=== PATIENT | male | born 1975 | race Caucasian/White ===

== ENCOUNTER 2020-08-07 20:13 | Inpatient (IN) ==
[2020-08-07] MEDS ORDERED: XOPENEX 1.25 MG/3 ML NEBULE NEB ONE ×2 (21:44→21:59)
[2020-08-07] MEDS ORDERED: SOLU-Medrol 125 MG VIAL IVP ONE (21:45)
--- NOTE | 2020-08-07 21:54 | DR.SOBA ---
HPI Time Seen Time Seen by Provider: 08/07/20 21:30 Primary Care Physician Primary Care Physician: NFD Complaints Chief Complaint Doctors Comments: covid sympttoms x 1 week but worsened today Chief Complaint:: PT AMBULATORY IN ED WITH C/O BEING EXPOSED TO COVID AND NOW OXYGEN LEVEL LOW. RAPID COVID SWAB DONE TODAY WHICH WAS POSITIVE. COVID-19 Coronavirus risk:travel/contact w/high risk person: Yes Has patient experienced Coronavirus symptoms: Yes Coronavirus symptoms experienced: Coughing and Shortness of Breath Source History Provided: Patient Mode of Arrival Mode of Arrival: Ambulatory Timing Onset of Chief Complaint: 08/04/20 Context Onset:: At Rest PE Risk Factors:: None History of:: None Prehospital Care:: None Modifying Factors Worsens:: Exertion Improves:: Nothing Associated Signs and Symptoms Associated Signs and Symptoms: Cough and Nasal Congestion If Cough Cough: Productive and White PMH PMH Past Medical History: No Past Surgical History: No Surgical History: No History Family History History of Family Medical Conditions: Yes Family Medical History: Diabetes Mellitus, Cancer, [place], Coronary Artery Disease and Hypertension Social History Does patient currently use any type of tobacco product: No Have you used tobacco products in the last 12 months: No Type of Tobacco Use: None Does any household member use tobacco: No Alcohol Use: None Do you use any recreational Drugs:: No Lives With: Alone Lives Where: Home Travel Risk Coronavirus risk:travel/contact w/high risk person: Yes Has patient experienced Coronavirus symptoms: Yes Coronavirus symptoms experienced: Coughing and Shortness of Breath Infectious screening In the last 2 months have you had wt loss of >10#?: NO Have you had fever, night sweats or hemotysis?: No Have you traveled outside the country in the last 6 months?: No Isolation: Droplet ROS Review of Systems Constitutional: No Symptoms Reported Eyes: No Symptoms Reported ENTM: No Symptoms Reported and Nose Discharge Respiratoy: Productive Cough and Short of Breath Cardiovascular: No Symptoms Reported Gastrointestinal/Abdominal: No Symptoms Reported Genitourinary: No Symptoms Reported Neurological: No Symptoms Reported Musculoskeletal: Muscle Pain Integumentary: No Symptoms Reported Hematologic/Lymphatic: No Symptoms Reported Endocrine: No Symptoms Reported Psychiatric: No Symptoms Reported All Other Systems: Reviewed and Negative PE Vital Signs Vitals: Temperature 98.9 F Pulse Rate 84 Respiratory Rate 22 Blood Pressure 139/84 O2 Sat by Pulse Oximetry 91 General Limitations: No Limitations General Appearance: Alert and In No Apparent Distress Head Head Exam: Normal Inspection, Atraumatic and Normocephalic Eyes Eye exam: Normal Appearance and EOMI ENT ENT Exam: Normal Exam and Normal Oropharynx Neck Neck Exam: Normal Inspection, Full ROM and Trachea Midline Chest Chest Inspection: Normal Inspection Respiratory Respiratory Exam: Normal Lung Sounds Bilat and Accessory Muscle Use Respiratory Exam: Bilateral: Clear to Auscultation Cardiovascular Cardiovascular Exam: Regular Rate Abdominal Exam Abdominal Exam: Normal Inspection Extremities Extremities Exam: Normal Inspection and Full ROM Back Back Exam: Normal Inspection and Full ROM Neurologic Neurological Exam: Alert, Oriented X3 and CN II-XII Intact Psychiatric Psychiatric Exam: Anxious Skin Skin Exam: Normal Color ROR Labs Reviewed Result Diagrams: 08/07/20 22:06 08/07/20 22:00 Laboratory: WBC 4.9 X10^3/uL (3.6-10.0) 08/07/20 22:06 RBC 5.33 X10^6/uL (4.7-6.0) 08/07/20 22:06 Hgb 14.3 g/dL (13.5-18.0) 08/07/20 22:06 Hct 42.7 % (42.0-54.0) 08/07/20 22:06 MCV 80.2 fL (80.0-100.0) 08/07/20 22:06 MCH 26.8 pg (27.0-34.0) L 08/07/20 22:06 MCHC 33.4 g/dL (33.0-35.0) 08/07/20 22:06 RDW 15.4 % (11.6-16.5) 08/07/20 22:06 Plt Count 277 X10^3/uL (150.0-450.0) 08/07/20 22:06 MPV 7.9 fL (7.4-11.0) 08/07/20 22:06 Neut % (Auto) 72.0 % (42.0-75.0) 08/07/20 22:06 Lymph % (Auto) 21.1 % (21.0-51.0) 08/07/20 22:06 Porter % (Auto) 5.3 % (0.0-13.0) 08/07/20 22:06 Eos % (Auto) 1.1 % (0.9-2.9) 08/07/20 22:06 Baso % (Auto) 0.5 % (0.2-1.0) 08/07/20 22:06 Neut # (Auto) 3.5 x10^3/uL (2.2-4.8) 08/07/20 22:06 Lymph # (Auto) 1.0 X10^3/uL (1.3-2.9) L 08/07/20 22:06 Porter # (Auto) 0.3 x10^3/uL (0.3-0.8) 08/07/20 22:06 Eos # (Auto) 0.1 x10^3/uL (0.0-0.2) 08/07/20 22:06 Baso # (Auto) 0.0 X10^3/uL (0.0-0.1) 08/07/20 22:06 Absolute Nucleated RBC 0.1 /100WBC 08/07/20 22:06 Sample Site Lrad 08/07/20 22:13 ABG pH 7.490 (7.35-7.45) H 08/07/20 22:13 ABG pCO2 35.0 mmHg (35.0-45.0) 08/07/20 22:13 ABG pO2 56.0 mmHg (80.0-100.0) L 08/07/20 22:13 ABG HCO3 26.7 mmol/L (22-26) H 08/07/20 22:13 ABG O2 Saturation 91.0 % (90-100) 08/07/20 22:13 ABG Base Excess 3.5 mmol/L (-2.0-2.0) H 08/07/20 22:13 Boyd Test Pos 08/07/20 22:13 A-a Gradient 50.0 mmHg 08/07/20 22:13 FiO2 21.0 08/07/20 22:13 Blood Gas Comments Keisha abg well-mtf 08/07/20 22:13 Sodium 140 mmol/L (136-145) 08/07/20 22:00 Corrected Sodium TNP 08/07/20 22:00 Potassium 4.0 mmol/L (3.5-5.1) 08/07/20 22:00 Chloride 101 mmol/L (98-107) 08/07/20 22:00 Carbon Dioxide 28.6 mmol/L (21-32) 08/07/20 22:00 BUN 12 mg/dL (7-18) 08/07/20 22:00 Creatinine 1.28 mg/dL (0.70-1.30) 08/07/20 22:00 Est GFR (MDRD) Af Amer > 60 (>60) 08/07/20 22:00 Est GFR (MDRD) Non-Af > 60 (>60) 08/07/20 22:00 Glucose 99 mg/dL (65-99) 08/07/20 22:00 Calcium 8.6 mg/dL (8.5-10.1) 08/07/20 22:00 Corrected Calcium 9.2 mg/dL (8.5-10.1) 08/07/20 22:00 Ferritin 348 ng/mL (26-388) 08/07/20 22:00 Total Bilirubin 0.30 mg/dL (0.2-1.0) 08/07/20 22:00 AST 65 Units/L (15-37) H 08/07/20 22:00 ALT 47 Units/L (12-78) 08/07/20 22:00 Alkaline Phosphatase 84 Units/L (46-116) 08/07/20 22:00 Creatine Kinase 523 Units/L (39-308) H 08/07/20 22:00 CK-MB (CK-2) 1.3 ng/mL (0-4.0) 08/07/20 22:00 CK/CKMB % Calc 0.3 % (<4) 08/07/20 22:00 Troponin I 0.04 ng/mL (0-1.5) 08/07/20 22:00 C-Reactive Protein 112.80 mg/L (0-3.0) H 08/07/20 22:00 B-Natriuretic Peptide 13.2 pg/mL (0-79) 08/07/20 22:00 Total Protein 7.4 g/dL (6.4-8.2) 08/07/20 22:00 Albumin 3.2 g/dL (3.4-5.0) L 08/07/20 22:00 Globulin 4.2 g/dL (2.5-4.5) 08/07/20 22:00 Albumin/Globulin Ratio 0.8 Ratio (1.1-2.1) L 08/07/20 22:00 XRAY XRAY Interpreted by: Radiologist X-ray Results: chest: multifocal alveolar disease Opioid Opioid Risk Tool Age (Lucien box if 16-45): Yes History of Preadolescent Sexual Abuse: No Total: 1 Total Score Risk Category: Low Risk Copyright: Cuong BAILON predicting aberrant behaviors Diagnosis Discharge Problem: Pneumonia due to 2019 novel coronavirus Instructions Forms: Precautions for COVID19 Patient Portal Social Distancing
--- NOTE | 2020-08-07 22:15 | RAD ---
STUDY: FRONTAL VIEW CHESTCOMPARISON: NoneHISTORY: PT C/O SOB. ALSO STATES HE HAD RAPID COVID SWAB TODAY AND WAS POSITIVEFINDINGS:Multifocal alveolar airspace disease is seen throughout the right and left lung.The heart size is within normal limits.The mediastinum is unremarkable.There is no evidence of pleural effusion or gross pneumothorax.The trachea is midline.IMPRESSION:1. Multifocal alveolar airspace disease is seen throughout the right and left lung. These imaging features are in correlation with the patient's positive test for rapid antigen COVID-19 and therefore most likely represent COVID-19 pneumonia.Electronically signed by: Oscar Gill (Aug 07, 2020 22:14:02)
[2020-08-07 22:17] LABS: ABG ALLEN TEST POS; ABG BASE EXCESS 3.5 mmol/L (-2.0-2.0); ABG HCO3 26.7 mmol/L (22-26)
[2020-08-07 22:20] LABS: BASOPHILS % (AUTO) 0.5 % (0.2-1.0); EOSINOPHILS # (AUTO) 0.1 x10^3/uL (0.0-0.2); EOSINOPHILS % (AUTO) 1.1 % (0.9-2.9); HEMATOCRIT 42.7 % (42.0-54.0); HEMOGLOBIN 14.3 g/dL (13.5-18.0); LYMPHOCYTES % (AUTO) 21.1 % (21.0-51.0); MEAN CORPUSCULAR HEMOGLOBIN 26.8 pg (27.0-34.0); MEAN CORPUSCULAR HGB CONC 33.4 g/dL (33.0-35.0); MEAN CORPUSCULAR VOLUME 80.2 fL (80.0-100.0); MEAN PLATELET VOLUME 7.9 fL (7.4-11.0); MONOCYTES # (AUTO) 0.3 x10^3/uL (0.3-0.8); MONOCYTES % (AUTO) 5.3 % (0.0-13.0); NEUTROPHILS # (AUTO) 3.5 x10^3/uL (2.2-4.8); PLATELET COUNT 277 X10^3/uL (150.0-450.0); RED BLOOD COUNT 5.33 X10^6/uL (4.7-6.0); RED CELL DISTRIBUTION WIDTH 15.4 % (11.6-16.5); WHITE BLOOD COUNT 4.9 X10^3/uL (3.6-10.0)
[2020-08-07] MEDS ORDERED: SOLU-Medrol 125 MG VIAL ONE (22:30)
[2020-08-07 22:34] LABS: BLOOD UREA NITROGEN 12 mg/dL (7-18); CALCIUM 8.6 mg/dL (8.5-10.1); CARBON DIOXIDE 28.6 mmol/L (21-32); CHLORIDE 101 mmol/L (98-107); CREATININE 1.28 mg/dL (0.70-1.30); SODIUM 140 mmol/L (136-145); TROPONIN I 0.04 ng/mL (0-1.5); eGFR NON BLACK RACES > 60 (>60)
[2020-08-07 22:39] LABS: ALANINE AMINOTRANSFERASE 47 Units/L (12-78); ALBUMIN 3.2 g/dL (3.4-5.0); ALKALINE PHOSPHATASE 84 Units/L (46-116); ASPARTATE AMINO TRANSFERASE 65 Units/L (15-37); CKMB % 0.3 % (<4); COR CA(FOR HYPOALB) 9.2 mg/dL (8.5-10.1); CREATINE KINASE 523 Units/L (39-308); CREATINE KINASE MB 1.3 ng/mL (0-4.0); TOTAL PROTEIN 7.4 g/dL (6.4-8.2)
[2020-08-08 05:29] LABS: BASOPHILS % (AUTO) 0.1 % (0.2-1.0); EOSINOPHILS % (AUTO) 0.2 % (0.9-2.9); HEMATOCRIT 42.1 % (42.0-54.0); HEMOGLOBIN 14.3 g/dL (13.5-18.0); LYMPHOCYTES # (AUTO) 0.4 X10^3/uL (1.3-2.9); LYMPHOCYTES % (AUTO) 7.2 % (21.0-51.0); MEAN CORPUSCULAR HEMOGLOBIN 27.2 pg (27.0-34.0); MEAN CORPUSCULAR VOLUME 80.1 fL (80.0-100.0); MEAN PLATELET VOLUME 7.7 fL (7.4-11.0); MONOCYTES # (AUTO) 0.2 x10^3/uL (0.3-0.8); MONOCYTES % (AUTO) 3.2 % (0.0-13.0); NEUTROPHILS # (AUTO) 5.5 x10^3/uL (2.2-4.8); NEUTROPHILS % (AUTO) 89.3 % (42.0-75.0); PLATELET COUNT 280 X10^3/uL (150.0-450.0); RED BLOOD COUNT 5.25 X10^6/uL (4.7-6.0); RED CELL DISTRIBUTION WIDTH 15.6 % (11.6-16.5); WHITE BLOOD COUNT 6.1 X10^3/uL (3.6-10.0)
[2020-08-08 05:57] VITALS: BMI 33.0
[2020-08-08 06:00] LABS: ALANINE AMINOTRANSFERASE 48 Units/L (12-78); ALKALINE PHOSPHATASE 82 Units/L (46-116); ASPARTATE AMINO TRANSFERASE 61 Units/L (15-37); BLOOD UREA NITROGEN 11 mg/dL (7-18); CALCIUM 8.5 mg/dL (8.5-10.1); CARBON DIOXIDE 25.5 mmol/L (21-32); CHLORIDE 104 mmol/L (98-107); CKMB % 0.3 % (<4); COR CA(FOR HYPOALB) 9.3 mg/dL (8.5-10.1); COR NA(FOR HYPERGLY) 142 mmol/L (136-145); CREATINE KINASE 474 Units/L (39-308); CREATINE KINASE MB 1.2 ng/mL (0-4.0); CREATININE 1.06 mg/dL (0.70-1.30); SODIUM 141 mmol/L (136-145); TOTAL PROTEIN 7.4 g/dL (6.4-8.2); TROPONIN I 0.03 ng/mL (0-1.5); eGFR NON BLACK RACES > 60 (>60)
[2020-08-08] MEDS: VITAMIN D (1.25MG) PO SCH ×2 (06:01→08:32)
[2020-08-08] MEDS: NS 1000 ML 1,000 ML IV SCH (06:01)
[2020-08-08] MEDS: VITAMIN A PO SCH ×2 (06:01→08:31)
[2020-08-08] MEDS: ZINC SULFATE PO SCH ×3 (06:01→20:51)
[2020-08-08] MEDS: PLAQUENIL PO SCH ×3 (06:02→20:51)
[2020-08-08] MEDS: TRICOR TAB 160 MG PO SCH ×2 (06:02→08:31)
[2020-08-08] MEDS: REMDESIVIR 200 MG in NS 250 ML IV 250 ML IV SCH ×2 (06:02→09:00)
[2020-08-08] MEDS: LOVENOX INJ 30 MG SYR SC SCH ×3 (06:05→20:48)
[2020-08-08] MEDS: ASCORBIC ACID INJ MULTI-DOSE VIAL 1,500 MG in NS 100 ML IV 100 ML IV SCH ×4 (06:34→20:48)
[2020-08-08] MEDS ORDERED: DECADRON INJ ONE (08:01)
[2020-08-08] MEDS: DECADRON TAB PO SCH (08:30)
--- NOTE | 2020-08-08 08:35 | RAD ---
HISTORYCOVID, PNEUMONIASTUDYCHEST, 1 VIEWCOMPARISONChest radiograph dated August 07, 2020.FINDINGSThe trachea is midline. The cardiac silhouette is stable. There unchanged midlung zone and lower lobe, peripheral, ground-glass and airspace opacities which would be consistent with a COVID-19 infection/pneumonia. No other cardiopulmonary changes are identified. The bony thorax is unremarkable.IMPRESSIONUnchanged radiographic findings of a midlung zone and lower lobe, peripheral, COVID-19 infection/pneumonia.Electronically signed by: SAUNDRA LEES III (Aug 08, 2020 08:33:46)
[2020-08-08] MEDS: DUONEB 0.5 MG/3 MG (3 mL) NEB SCH ×4 (09:15→20:00)
[2020-08-08] MEDS: PULMICORT NEB TX 0.5 MG NEB SCH ×2 (09:15→20:00)
[2020-08-09] MEDS: NS 1000 ML 1,000 ML IV SCH ×2 (03:12→23:10)
[2020-08-09] MEDS: ASCORBIC ACID INJ MULTI-DOSE VIAL 1,500 MG in NS 100 ML IV 100 ML IV SCH ×4 (03:12→20:00)
[2020-08-09 05:24] LABS: BASOPHILS % (AUTO) 0.2 % (0.2-1.0); HEMATOCRIT 41.6 % (42.0-54.0); HEMOGLOBIN 13.5 g/dL (13.5-18.0); LYMPHOCYTES # (AUTO) 0.8 X10^3/uL (1.3-2.9); MEAN CORPUSCULAR HEMOGLOBIN 26.5 pg (27.0-34.0); MEAN CORPUSCULAR HGB CONC 32.5 g/dL (33.0-35.0); MEAN CORPUSCULAR VOLUME 81.3 fL (80.0-100.0); MEAN PLATELET VOLUME 8.1 fL (7.4-11.0); MONOCYTES # (AUTO) 0.6 x10^3/uL (0.3-0.8); MONOCYTES % (AUTO) 7.6 % (0.0-13.0); NEUTROPHILS # (AUTO) 6.3 x10^3/uL (2.2-4.8); NEUTROPHILS % (AUTO) 82.2 % (42.0-75.0); PLATELET COUNT 300 X10^3/uL (150.0-450.0); RED BLOOD COUNT 5.11 X10^6/uL (4.7-6.0); RED CELL DISTRIBUTION WIDTH 15.2 % (11.6-16.5); WHITE BLOOD COUNT 7.7 X10^3/uL (3.6-10.0)
--- NOTE | 2020-08-09 05:31 | RAD ---
HISTORYPneumonia SOBSTUDYAP [id number]/27/2020FINDINGSThere is no significant change in appearance of heart or lungs. Cardiac size remains upper normal. There is no change in extent or distribution of bilateral pulmonary infiltrates. No new consolidation, developing pleural fluid or pneumothorax.IMPRESSIONNo change. Persistent bilateral infiltrates, pattern consistent with atypical pneumonia.Electronically signed by: MARIA TERESA BUTLER (Aug 09, 2020 05:29:35)
[2020-08-09 05:33] LABS: ABG ALLEN TEST POS; ABG BASE EXCESS 3.2 mmol/L (-2.0-2.0); ABG HCO3 27.9 mmol/L (22-26)
[2020-08-09 05:40] LABS: ALANINE AMINOTRANSFERASE 46 Units/L (12-78); ALBUMIN 2.7 g/dL (3.4-5.0); ALKALINE PHOSPHATASE 74 Units/L (46-116); ASPARTATE AMINO TRANSFERASE 43 Units/L (15-37); BLOOD UREA NITROGEN 13 mg/dL (7-18); CALCIUM 8.6 mg/dL (8.5-10.1); CARBON DIOXIDE 28.5 mmol/L (21-32); CHLORIDE 105 mmol/L (98-107); COR CA(FOR HYPOALB) 9.6 mg/dL (8.5-10.1); COR NA(FOR HYPERGLY) 144 mmol/L (136-145); CREATININE 1.08 mg/dL (0.70-1.30); SODIUM 143 mmol/L (136-145); TOTAL PROTEIN 6.8 g/dL (6.4-8.2); eGFR NON BLACK RACES > 60 (>60)
[2020-08-09] MEDS: DUONEB 0.5 MG/3 MG (3 mL) NEB SCH ×4 (09:15→20:58)
[2020-08-09] MEDS: PULMICORT NEB TX 0.5 MG NEB SCH ×2 (09:15→20:58)
[2020-08-09] MEDS: LOVENOX INJ 30 MG SYR SC SCH ×2 (09:50→20:47)
[2020-08-09] MEDS: DECADRON TAB PO SCH (09:51)
[2020-08-09] MEDS: PLAQUENIL PO SCH (09:51)
[2020-08-09] MEDS: TRICOR TAB 160 MG PO SCH (09:51)
[2020-08-09] MEDS: VITAMIN A PO SCH (09:52)
[2020-08-09] MEDS: ZINC SULFATE PO SCH ×2 (09:52→20:48)
[2020-08-09] MEDS: VITAMIN D3 125 mcg (5,000 UNITS) PO SCH (09:52)
[2020-08-09] MEDS ORDERED: REMDESIVIR IV ONE (20:30)
[2020-08-09] MEDS ORDERED: NS 250 ML IV 250 ML IV ONE (20:36)
[2020-08-09] MEDS: REMDESIVIR 100 MG in NS 250 ML IV 250 ML IV SCH (20:44)
[2020-08-10] MEDS: ASCORBIC ACID INJ MULTI-DOSE VIAL 1,500 MG in NS 100 ML IV 100 ML IV SCH ×4 (03:33→21:29)
[2020-08-10 06:13] LABS: BASOPHILS % (AUTO) 0.1 % (0.2-1.0); EOSINOPHILS % (AUTO) 0.2 % (0.9-2.9); HEMATOCRIT 39.5 % (42.0-54.0); HEMOGLOBIN 13.2 g/dL (13.5-18.0); LYMPHOCYTES % (AUTO) 11.9 % (21.0-51.0); MEAN CORPUSCULAR HEMOGLOBIN 26.9 pg (27.0-34.0); MEAN CORPUSCULAR HGB CONC 33.4 g/dL (33.0-35.0); MEAN CORPUSCULAR VOLUME 80.7 fL (80.0-100.0); MEAN PLATELET VOLUME 7.9 fL (7.4-11.0); MONOCYTES # (AUTO) 0.7 x10^3/uL (0.3-0.8); MONOCYTES % (AUTO) 8.2 % (0.0-13.0); NEUTROPHILS # (AUTO) 6.6 x10^3/uL (2.2-4.8); NEUTROPHILS % (AUTO) 79.6 % (42.0-75.0); PLATELET COUNT 264 X10^3/uL (150.0-450.0); RED BLOOD COUNT 4.89 X10^6/uL (4.7-6.0); RED CELL DISTRIBUTION WIDTH 15.4 % (11.6-16.5); WHITE BLOOD COUNT 8.3 X10^3/uL (3.6-10.0)
[2020-08-10 06:31] LABS: ALANINE AMINOTRANSFERASE 53 Units/L (12-78); ALBUMIN 2.6 g/dL (3.4-5.0); ALKALINE PHOSPHATASE 70 Units/L (46-116); ASPARTATE AMINO TRANSFERASE 33 Units/L (15-37); BLOOD UREA NITROGEN 14 mg/dL (7-18); CALCIUM 8.1 mg/dL (8.5-10.1); CARBON DIOXIDE 29.6 mmol/L (21-32); CHLORIDE 106 mmol/L (98-107); COR CA(FOR HYPOALB) 9.2 mg/dL (8.5-10.1); COR NA(FOR HYPERGLY) 143 mmol/L (136-145); CREATININE 0.93 mg/dL (0.70-1.30); SODIUM 143 mmol/L (136-145); TOTAL PROTEIN 6.4 g/dL (6.4-8.2); eGFR NON BLACK RACES > 60 (>60)
[2020-08-10] MEDS: REMDESIVIR 100 MG in NS 250 ML IV 250 ML IV SCH (09:29)
[2020-08-10] MEDS: DECADRON TAB PO SCH (09:51)
[2020-08-10] MEDS: VITAMIN D3 125 mcg (5,000 UNITS) PO SCH ×2 (09:51→15:42)
[2020-08-10] MEDS: ZINC SULFATE PO SCH ×2 (09:51→21:30)
[2020-08-10] MEDS: VITAMIN A PO SCH (09:52)
[2020-08-10] MEDS: TRICOR TAB 160 MG PO SCH (09:52)
[2020-08-10] MEDS: LOVENOX INJ 30 MG SYR SC SCH ×2 (09:52→21:29)
[2020-08-10] MEDS: PULMICORT NEB TX 0.5 MG NEB SCH ×2 (10:00→20:35)
[2020-08-10] MEDS: DUONEB 0.5 MG/3 MG (3 mL) NEB SCH ×4 (10:00→20:35)
[2020-08-11] MEDS: NS 1000 ML 1,000 ML IV SCH
[2020-08-11] MEDS: ASCORBIC ACID INJ MULTI-DOSE VIAL 1,500 MG in NS 100 ML IV 100 ML IV SCH ×4 (02:56→21:03)
[2020-08-11 06:15] LABS: BASOPHILS % (AUTO) 0.3 % (0.2-1.0); EOSINOPHILS % (AUTO) 0.5 % (0.9-2.9); HEMATOCRIT 42.3 % (42.0-54.0); HEMOGLOBIN 13.8 g/dL (13.5-18.0); LYMPHOCYTES # (AUTO) 1.4 X10^3/uL (1.3-2.9); LYMPHOCYTES % (AUTO) 15.4 % (21.0-51.0); MEAN CORPUSCULAR HEMOGLOBIN 26.5 pg (27.0-34.0); MEAN CORPUSCULAR HGB CONC 32.6 g/dL (33.0-35.0); MEAN CORPUSCULAR VOLUME 81.2 fL (80.0-100.0); MONOCYTES # (AUTO) 0.7 x10^3/uL (0.3-0.8); MONOCYTES % (AUTO) 8.2 % (0.0-13.0); NEUTROPHILS # (AUTO) 6.8 x10^3/uL (2.2-4.8); NEUTROPHILS % (AUTO) 75.6 % (42.0-75.0); PLATELET COUNT 249 X10^3/uL (150.0-450.0); RED CELL DISTRIBUTION WIDTH 15.7 % (11.6-16.5)
[2020-08-11 06:39] LABS: ALANINE AMINOTRANSFERASE 67 Units/L (12-78); ALBUMIN 2.9 g/dL (3.4-5.0); ALKALINE PHOSPHATASE 75 Units/L (46-116); ASPARTATE AMINO TRANSFERASE 41 Units/L (15-37); BLOOD UREA NITROGEN 17 mg/dL (7-18); CALCIUM 8.8 mg/dL (8.5-10.1); CARBON DIOXIDE 30.3 mmol/L (21-32); CHLORIDE 106 mmol/L (98-107); COR CA(FOR HYPOALB) 9.7 mg/dL (8.5-10.1); SODIUM 144 mmol/L (136-145); TOTAL PROTEIN 6.9 g/dL (6.4-8.2); eGFR NON BLACK RACES > 60 (>60)
[2020-08-11] MEDS: DUONEB 0.5 MG/3 MG (3 mL) NEB SCH ×4 (08:55→21:37)
[2020-08-11] MEDS: PULMICORT NEB TX 0.5 MG NEB SCH ×2 (08:55→21:37)
[2020-08-11] MEDS: LOVENOX INJ 30 MG SYR SC SCH ×2 (09:49→21:07)
[2020-08-11] MEDS: VITAMIN A PO SCH (09:51)
[2020-08-11] MEDS: REMDESIVIR 100 MG in NS 250 ML IV 250 ML IV SCH (09:51)
[2020-08-11] MEDS: VITAMIN D3 125 mcg (5,000 UNITS) PO SCH (09:51)
[2020-08-11] MEDS: DECADRON TAB PO SCH (09:51)
[2020-08-11] MEDS: ZINC SULFATE PO SCH ×2 (09:52→21:03)
[2020-08-11] MEDS: TRICOR TAB 160 MG PO SCH (09:52)
--- NOTE | 2020-08-11 10:20 | RAD ---
HISTORYCOVID PNEUMONIASTUDYCHEST, 1 [id number]/28/2020TECHNIQUEAP view of the chestFINDINGSCardiac and mediastinal contours are stable. Stable bilateral multifocal airspace disease. No pleural effusion or pneumothorax.IMPRESSIONNo significant change.Electronically signed by: Abdirashid Coles (Aug 11, 2020 10:18:07)
[2020-08-11 10:56] LABS: ABG BASE EXCESS 6.7 mmol/L (-2.0-2.0)
[2020-08-11 10:58] LABS: ABG ALLEN TEST POS; ABG HCO3 30.4 mmol/L (22-26)
[2020-08-11] MEDS: ZITHROMAX INJ 500 MG VIAL 500 MG in NS 250 ML IV 250 ML IV SCH (14:12)
[2020-08-11] MEDS: ZOSYN VIAL 3.375 GRAMS 3.375 G in NS 100 ML IV + SPIKE MINIBAG* 100 ML IV SCH ×3 (14:13→21:20)
[2020-08-12] MEDS: ASCORBIC ACID INJ MULTI-DOSE VIAL 1,500 MG in NS 100 ML IV 100 ML IV SCH ×4 (02:46→20:35)
[2020-08-12] MEDS: NS 1000 ML 1,000 ML IV SCH ×2 (02:46→23:15)
--- NOTE | 2020-08-12 04:51 | RAD ---
HISTORYPNEUMONIASTUDYCHEST, 1 [id number]/30/2020FINDINGSThe trachea is midline. The cardiac silhouette is within normal limits. Patchy bilateral pulmonary opacities/infiltrates, slightly increased compared to prior exam.. The bony thorax is unremarkable.IMPRESSIONPatchy bilateral pulmonary opacities/infiltrates, increased compared to prior exam.Electronically signed by: Juana Jiménez (Aug 12, 2020 04:50:08)
[2020-08-12] MEDS: ZOSYN VIAL 3.375 GRAMS 3.375 G in NS 100 ML IV + SPIKE MINIBAG* 100 ML IV SCH ×3 (05:28→21:22)
[2020-08-12 05:34] LABS: BASOPHILS % (AUTO) 0.1 % (0.2-1.0); EOSINOPHILS # (AUTO) 0.1 x10^3/uL (0.0-0.2); EOSINOPHILS % (AUTO) 0.7 % (0.9-2.9); HEMATOCRIT 40.8 % (42.0-54.0); LYMPHOCYTES # (AUTO) 1.8 X10^3/uL (1.3-2.9); LYMPHOCYTES % (AUTO) 17.6 % (21.0-51.0); MEAN CORPUSCULAR HEMOGLOBIN 25.9 pg (27.0-34.0); MEAN CORPUSCULAR HGB CONC 31.8 g/dL (33.0-35.0); MEAN CORPUSCULAR VOLUME 81.2 fL (80.0-100.0); MEAN PLATELET VOLUME 8.1 fL (7.4-11.0); MONOCYTES # (AUTO) 0.8 x10^3/uL (0.3-0.8); MONOCYTES % (AUTO) 7.8 % (0.0-13.0); NEUTROPHILS # (AUTO) 7.5 x10^3/uL (2.2-4.8); NEUTROPHILS % (AUTO) 73.8 % (42.0-75.0); PLATELET COUNT 251 X10^3/uL (150.0-450.0); RED BLOOD COUNT 5.02 X10^6/uL (4.7-6.0); RED CELL DISTRIBUTION WIDTH 15.8 % (11.6-16.5); WHITE BLOOD COUNT 10.1 X10^3/uL (3.6-10.0)
[2020-08-12 05:43] LABS: ALANINE AMINOTRANSFERASE 59 Units/L (12-78); ALBUMIN 2.7 g/dL (3.4-5.0); ALKALINE PHOSPHATASE 65 Units/L (46-116); ASPARTATE AMINO TRANSFERASE 31 Units/L (15-37); BLOOD UREA NITROGEN 17 mg/dL (7-18); CALCIUM 8.1 mg/dL (8.5-10.1); CARBON DIOXIDE 31.7 mmol/L (21-32); CHLORIDE 105 mmol/L (98-107); COR CA(FOR HYPOALB) 9.1 mg/dL (8.5-10.1); CREATININE 1.06 mg/dL (0.70-1.30); SODIUM 143 mmol/L (136-145); TOTAL PROTEIN 6.4 g/dL (6.4-8.2); eGFR NON BLACK RACES > 60 (>60)
[2020-08-12 06:04] LABS: PLATELET MORPHOLOGY COMMENT NORMAL (NORMAL)
[2020-08-12 06:14] LABS: ABG BASE EXCESS 5.5 mmol/L (-2.0-2.0); ABG HCO3 29.9 mmol/L (22-26)
[2020-08-12 06:15] LABS: ABG ALLEN TEST POS
[2020-08-12] MEDS: LOVENOX INJ 30 MG SYR SC SCH ×2 (08:36→20:35)
[2020-08-12] MEDS: VITAMIN D3 125 mcg (5,000 UNITS) PO SCH (09:00)
[2020-08-12] MEDS: REMDESIVIR 100 MG in NS 250 ML IV 250 ML IV SCH (09:00)
[2020-08-12] MEDS: SOLU-Medrol 40 MG VIAL IVP SCH ×3 (09:00→21:22)
[2020-08-12] MEDS: ZITHROMAX INJ 500 MG VIAL 500 MG in NS 250 ML IV 250 ML IV SCH (09:00)
[2020-08-12] MEDS: ZINC SULFATE PO SCH ×2 (09:00→20:36)
[2020-08-12] MEDS: ZESTRIL TAB 5 MG PO SCH (09:00)
[2020-08-12] MEDS: TRICOR TAB 160 MG PO SCH (09:00)
[2020-08-12] MEDS: VITAMIN A PO SCH (09:00)
[2020-08-12] MEDS: DUONEB 0.5 MG/3 MG (3 mL) NEB SCH ×4 (09:25→21:45)
[2020-08-12] MEDS: PULMICORT NEB TX 0.5 MG NEB SCH ×2 (09:25→21:45)
[2020-08-12] MEDS ORDERED: HYDROCHLOROTHIAZIDE 25 MG TAB PO SCH (11:00)
[2020-08-13] MEDS: ASCORBIC ACID INJ MULTI-DOSE VIAL 1,500 MG in NS 100 ML IV 100 ML IV SCH ×4 (03:01→20:41)
[2020-08-13] MEDS: SOLU-Medrol 40 MG VIAL IVP SCH ×3 (05:13→21:05)
[2020-08-13] MEDS: ZOSYN VIAL 3.375 GRAMS 3.375 G in NS 100 ML IV + SPIKE MINIBAG* 100 ML IV SCH ×3 (05:13→21:06)
[2020-08-13 05:26] LABS: BASOPHILS % (AUTO) 0.1 % (0.2-1.0); EOSINOPHILS % (AUTO) 0.1 % (0.9-2.9); HEMATOCRIT 43.2 % (42.0-54.0); HEMOGLOBIN 14.1 g/dL (13.5-18.0); LYMPHOCYTES # (AUTO) 1.3 X10^3/uL (1.3-2.9); MEAN CORPUSCULAR HEMOGLOBIN 26.3 pg (27.0-34.0); MEAN CORPUSCULAR HGB CONC 32.6 g/dL (33.0-35.0); MEAN CORPUSCULAR VOLUME 80.6 fL (80.0-100.0); MEAN PLATELET VOLUME 8.3 fL (7.4-11.0); MONOCYTES # (AUTO) 0.7 x10^3/uL (0.3-0.8); MONOCYTES % (AUTO) 4.8 % (0.0-13.0); NEUTROPHILS # (AUTO) 12.7 x10^3/uL (2.2-4.8); PLATELET COUNT 339 X10^3/uL (150.0-450.0); RED BLOOD COUNT 5.36 X10^6/uL (4.7-6.0); RED CELL DISTRIBUTION WIDTH 15.5 % (11.6-16.5); WHITE BLOOD COUNT 14.7 X10^3/uL (3.6-10.0)
--- NOTE | 2020-08-13 06:10 | RAD ---
HISTORYFollow-up COVID-19STUDYChest AP [id number]/01/2020FINDINGSThe heart is within normal limits in size. The to are normal. Bilateral interstitial and patchy ground-glass infiltrates again identified slightly improved when compared to the prior examination. No pleural effusions are identified. Bony thorax is unremarkable.IMPRESSIONSlight improvement bilateral infiltratesElectronically signed by: AKBAR CHAIREZ (Aug 13, 2020 06:08:55)
[2020-08-13] MEDS: LOVENOX INJ 30 MG SYR SC SCH ×2 (08:43→21:06)
[2020-08-13] MEDS: TRICOR TAB 160 MG PO SCH (08:44)
[2020-08-13] MEDS: REMDESIVIR 100 MG in NS 250 ML IV 250 ML IV SCH (08:44)
[2020-08-13] MEDS: ZESTRIL TAB 5 MG PO SCH (08:44)
[2020-08-13] MEDS: VITAMIN A PO SCH (08:44)
[2020-08-13] MEDS: VITAMIN D3 125 mcg (5,000 UNITS) PO SCH (08:44)
[2020-08-13] MEDS: ZITHROMAX INJ 500 MG VIAL 500 MG in NS 250 ML IV 250 ML IV SCH (08:45)
[2020-08-13] MEDS: ZINC SULFATE PO SCH ×2 (08:45→20:43)
[2020-08-13 09:36] LABS: ABG ALLEN TEST POS; ABG BASE EXCESS 2.8 mmol/L (-2.0-2.0); ABG HCO3 27.2 mmol/L (22-26)
[2020-08-13] MEDS: PULMICORT NEB TX 0.5 MG NEB SCH ×2 (09:45→20:45)
[2020-08-13] MEDS: DUONEB 0.5 MG/3 MG (3 mL) NEB SCH ×4 (09:45→20:45)
[2020-08-13 09:53] LABS: ALANINE AMINOTRANSFERASE 66 Units/L (12-78); ALBUMIN 3.1 g/dL (3.4-5.0); ALKALINE PHOSPHATASE 70 Units/L (46-116); ASPARTATE AMINO TRANSFERASE 33 Units/L (15-37); BLOOD UREA NITROGEN 17 mg/dL (7-18); CALCIUM 8.7 mg/dL (8.5-10.1); CARBON DIOXIDE 24.7 mmol/L (21-32); CHLORIDE 102 mmol/L (98-107); COR CA(FOR HYPOALB) 9.4 mg/dL (8.5-10.1); COR NA(FOR HYPERGLY) 141 mmol/L (136-145); CREATININE 1.05 mg/dL (0.70-1.30); SODIUM 140 mmol/L (136-145); eGFR NON BLACK RACES > 60 (>60)
[2020-08-13 11:37] LABS: ABG BASE EXCESS 4.7 mmol/L (-2.0-2.0); ABG HCO3 29.2 mmol/L (22-26)
[2020-08-13 11:38] LABS: ABG ALLEN TEST POS
[2020-08-13] MEDS ORDERED: SOLU-Medrol 40 MG VIAL ONE (20:20)
[2020-08-14] MEDS: NS 1000 ML 1,000 ML IV SCH (01:08)
[2020-08-14] MEDS: ASCORBIC ACID INJ MULTI-DOSE VIAL 1,500 MG in NS 100 ML IV 100 ML IV SCH ×4 (02:38→21:13)
--- NOTE | 2020-08-14 04:12 | RAD ---
[id number], SOBSTUDYCHEST, 1 [id number]/02/2020FINDINGSThe trachea is midline. The cardiac silhouette is mildly enlarged, similar to prior exam.. Bilateral patchy pulmonary opacities/infiltrates slightly improved compared to prior exam. No pneumothorax.. The bony thorax is unremarkable.IMPRESSIONSlight interval improvement in patchy pulmonary opacities/infiltrates.Electronically signed by: Juana Jiménez (Aug 14, 2020 04:11:15)
[2020-08-14] MEDS: ZOSYN VIAL 3.375 GRAMS 3.375 G in NS 100 ML IV + SPIKE MINIBAG* 100 ML IV SCH ×3 (05:20→21:15)
[2020-08-14] MEDS: SOLU-Medrol 40 MG VIAL IVP SCH ×3 (05:20→21:14)
[2020-08-14 05:40] LABS: BASOPHILS % (AUTO) 0.2 % (0.2-1.0); HEMATOCRIT 42.2 % (42.0-54.0); HEMOGLOBIN 13.6 g/dL (13.5-18.0); LYMPHOCYTES # (AUTO) 1.2 X10^3/uL (1.3-2.9); LYMPHOCYTES % (AUTO) 7.4 % (21.0-51.0); MEAN CORPUSCULAR HEMOGLOBIN 26.4 pg (27.0-34.0); MEAN CORPUSCULAR HGB CONC 32.2 g/dL (33.0-35.0); MEAN CORPUSCULAR VOLUME 81.9 fL (80.0-100.0); MEAN PLATELET VOLUME 8.4 fL (7.4-11.0); MONOCYTES # (AUTO) 1.1 x10^3/uL (0.3-0.8); MONOCYTES % (AUTO) 6.6 % (0.0-13.0); NEUTROPHILS # (AUTO) 14.4 x10^3/uL (2.2-4.8); NEUTROPHILS % (AUTO) 85.8 % (42.0-75.0); PLATELET COUNT 343 X10^3/uL (150.0-450.0); RED BLOOD COUNT 5.15 X10^6/uL (4.7-6.0); RED CELL DISTRIBUTION WIDTH 15.3 % (11.6-16.5); WHITE BLOOD COUNT 16.7 X10^3/uL (3.6-10.0)
[2020-08-14 05:49] LABS: ALANINE AMINOTRANSFERASE 61 Units/L (12-78); ALBUMIN 2.9 g/dL (3.4-5.0); ALKALINE PHOSPHATASE 67 Units/L (46-116); ASPARTATE AMINO TRANSFERASE 25 Units/L (15-37); BLOOD UREA NITROGEN 21 mg/dL (7-18); CALCIUM 8.7 mg/dL (8.5-10.1); CARBON DIOXIDE 27.5 mmol/L (21-32); CHLORIDE 105 mmol/L (98-107); COR CA(FOR HYPOALB) 9.6 mg/dL (8.5-10.1); COR NA(FOR HYPERGLY) 143 mmol/L (136-145); CREATININE 1.19 mg/dL (0.70-1.30); SODIUM 140 mmol/L (136-145); TOTAL PROTEIN 6.5 g/dL (6.4-8.2); eGFR NON BLACK RACES > 60 (>60)
[2020-08-14 06:00] LABS: ABG BASE EXCESS 4.1 mmol/L (-2.0-2.0); ABG HCO3 29.2 mmol/L (22-26)
[2020-08-14 06:01] LABS: ABG ALLEN TEST POS
[2020-08-14] MEDS: REMDESIVIR 100 MG in NS 250 ML IV 250 ML IV SCH (08:49)
[2020-08-14] MEDS: VITAMIN A PO SCH (08:49)
[2020-08-14] MEDS: LOVENOX INJ 30 MG SYR SC SCH ×2 (08:49→21:13)
[2020-08-14] MEDS: TRICOR TAB 160 MG PO SCH (08:49)
[2020-08-14] MEDS: ZESTRIL TAB 5 MG PO SCH (08:49)
[2020-08-14] MEDS: VITAMIN D3 125 mcg (5,000 UNITS) PO SCH (08:49)
[2020-08-14] MEDS: ZITHROMAX INJ 500 MG VIAL 500 MG in NS 250 ML IV 250 ML IV SCH (08:50)
[2020-08-14] MEDS: ZINC SULFATE PO SCH ×2 (08:50→21:14)
[2020-08-14] MEDS: PULMICORT NEB TX 0.5 MG NEB SCH ×2 (09:30→21:33)
[2020-08-14] MEDS: DUONEB 0.5 MG/3 MG (3 mL) NEB SCH ×4 (09:30→21:33)
[2020-08-15] MEDS: NS 1000 ML 1,000 ML IV SCH (00:13)
[2020-08-15] MEDS: ASCORBIC ACID INJ MULTI-DOSE VIAL 1,500 MG in NS 100 ML IV 100 ML IV SCH ×2 (03:13→08:48)
[2020-08-15 05:13] LABS: BASOPHILS % (AUTO) 0.3 % (0.2-1.0); EOSINOPHILS % (AUTO) 0.1 % (0.9-2.9); HEMATOCRIT 42.1 % (42.0-54.0); LYMPHOCYTES # (AUTO) 1.8 X10^3/uL (1.3-2.9); LYMPHOCYTES % (AUTO) 13.6 % (21.0-51.0); MEAN CORPUSCULAR HEMOGLOBIN 26.9 pg (27.0-34.0); MEAN CORPUSCULAR HGB CONC 33.3 g/dL (33.0-35.0); MEAN CORPUSCULAR VOLUME 80.7 fL (80.0-100.0); MEAN PLATELET VOLUME 7.9 fL (7.4-11.0); MONOCYTES % (AUTO) 7.8 % (0.0-13.0); NEUTROPHILS # (AUTO) 10.4 x10^3/uL (2.2-4.8); NEUTROPHILS % (AUTO) 78.2 % (42.0-75.0); PLATELET COUNT 352 X10^3/uL (150.0-450.0); RED BLOOD COUNT 5.21 X10^6/uL (4.7-6.0); RED CELL DISTRIBUTION WIDTH 15.7 % (11.6-16.5); WHITE BLOOD COUNT 13.3 X10^3/uL (3.6-10.0)
[2020-08-15 05:29] LABS: ALANINE AMINOTRANSFERASE 59 Units/L (12-78); ALBUMIN 3.1 g/dL (3.4-5.0); ALKALINE PHOSPHATASE 62 Units/L (46-116); ASPARTATE AMINO TRANSFERASE 20 Units/L (15-37); BLOOD UREA NITROGEN 19 mg/dL (7-18); CALCIUM 8.7 mg/dL (8.5-10.1); CHLORIDE 105 mmol/L (98-107); COR CA(FOR HYPOALB) 9.4 mg/dL (8.5-10.1); COR NA(FOR HYPERGLY) 143 mmol/L (136-145); CREATININE 1.06 mg/dL (0.70-1.30); SODIUM 142 mmol/L (136-145); TOTAL PROTEIN 6.6 g/dL (6.4-8.2); eGFR NON BLACK RACES > 60 (>60)
[2020-08-15 05:33] LABS: CARBON DIOXIDE 32.5 mmol/L (21-32)
[2020-08-15] MEDS: ZOSYN VIAL 3.375 GRAMS 3.375 G in NS 100 ML IV + SPIKE MINIBAG* 100 ML IV SCH (06:01)
[2020-08-15] MEDS: SOLU-Medrol 40 MG VIAL IVP SCH (06:01)
[2020-08-15] MEDS: ZITHROMAX INJ 500 MG VIAL 500 MG in NS 250 ML IV 250 ML IV SCH (08:49)
[2020-08-15] MEDS: REMDESIVIR 100 MG in NS 250 ML IV 250 ML IV SCH (08:49)
[2020-08-15] MEDS: LOVENOX INJ 30 MG SYR SC SCH (08:49)
[2020-08-15] MEDS: TRICOR TAB 160 MG PO SCH (08:50)
[2020-08-15] MEDS: VITAMIN A PO SCH (08:51)
[2020-08-15] MEDS: ZESTRIL TAB 5 MG PO SCH (08:51)
[2020-08-15] MEDS: VITAMIN D3 125 mcg (5,000 UNITS) PO SCH (08:51)
[2020-08-15] MEDS: ZINC SULFATE PO SCH (08:51)
[2020-08-15] MEDS: PULMICORT NEB TX 0.5 MG NEB SCH (09:18)
[2020-08-15] MEDS: DUONEB 0.5 MG/3 MG (3 mL) NEB SCH ×2 (09:18→12:11)
[2020-08-15 10:41] LABS: ABG ALLEN TEST POS; ABG BASE EXCESS 4.5 mmol/L (-2.0-2.0); ABG HCO3 29.2 mmol/L (22-26)
--- NOTE | 2020-08-15 10:52 | RAD ---
[id number], SOBSTUDYCHEST, 1 [id number]/03/2020FINDINGSThere is less opacity compatible with improved bronchopneumonia. Residual abnormality still remains.No pleural effusion or pneumothorax.The heart size is magnified.Bones are unremarkable.IMPRESSION1. Improved bronchopneumoniaElectronically signed by: Barber Palma (Aug 15, 2020 10:50:08)
[2020-08-15 13:42] VITALS: BP 121/58
== END 2020-08-15 16:40 | disposition home or self-care (01) | DRG 177 ==
LOC: ER 20:19 → ICU 23:05
PROVIDERS: ADMIT Internal Medicine; ATTEND Internal Medicine
DX: J12.89 Other viral pneumonia; R79.82 Elevated C-reactive protein (CRP); I10 Essential (primary) hypertension; U07.1 COVID-19; R06.02 Shortness of breath